=== PATIENT | female | born 1960 | race American Indian/Alaskan Native ===

== ENCOUNTER 2017-06-04 18:57 | Inpatient (IN) | payer MEDICARE ==
[2017-06-04 20:18] LABS: Basophils # (Auto) 0.1 K/mm3 (0.0-0.1); Basophils % (Auto) 0.7 % (0.0-1.8); Eosinophils % (Auto) 0.2 % (0.0-4.3); Hemoglobin 9.8 gm/dl (10.1-14.3); Lymphocytes # (Auto) 0.8 K/mm3 (1.2-5.4); Lymphocytes % (Auto) 9.2 % (13.4-35.0); Mean Corpuscular HGB Conc 33 % (30-34); Mean Corpuscular Hemoglobin 28 pg (28-32); Mean Corpuscular Volume 86 fl (79-97); Monocytes # (Auto) 1.2 K/mm3 (0.0-0.8); Platelet Count 109 K/mm3 (140-440); Red Blood Count 3.48 M/mm3 (3.65-5.03)
[2017-06-04 20:27] LABS: Albumin 3.5 g/dL (3.9-5); Calcium 8.6 mg/dL (8.4-10.2)
[2017-06-04] MEDS ORDERED: ATIVAN ONE (22:42)
[2017-06-05] MEDS ORDERED: PERCOCET 5/325 PO ONE (06:19)
--- NOTE | 2017-06-05 06:39 | Emergency Department Report ---
HPI - General Chief Complaint: Abdominal Pain Time Seen by Provider: 06/05/17 06:12 - HPI HPI: 56-year-old female presents to the emergency department with complaint of right upper quadrant abdominal pain with some nausea that has been going on since 4 PM yesterday. She has a history of end-stage renal disease on hemodialysis and hypertension. She usually gets dialysis on Thursday/Thursday/ Thursday but is set up to get it tomorrow since she is currently visiting from out of town, from [place]. She has a surgical history of a cholecystectomy. She did not take anything for her symptoms prior to presentation. No sick contacts at home. She does not make much urine secondary to her end-stage renal disease. She denies any problems with bowel movements, fever, chest pain or shortness of breath. ED Past Medical Hx - Past Medical History Hx Hypertension: Yes Hx Renal Disease: Yes (HD- MWF) - Surgical History Hx Cholecystectomy: Yes - Social History Smoking Status: Never Smoker Substance Use Type: None - Medications Home Medications: Home Medications Medication Instructions Recorded Confirmed Last Taken Type Hydralazine HCl 50 mg PO TID 06/05/17 06/05/17 06/03/17 History ISOSORBIDE MONOnitrate [Imdur ER] 60 mg PO QAM 06/05/17 06/05/17 06/03/17 History Metoprolol [Lopressor] 25 mg PO BID 06/05/17 06/05/17 06/03/17 History Simvastatin [Zocor TAB] 20 mg PO QHS 06/05/17 06/05/17 06/03/17 History clonazePAM [Klonopin] 0.5 mg PO HS 06/05/17 06/05/17 06/03/17 History ED Review of Systems ROS: Stated complaint: ABD PAIN Other details as noted in HPI Comment: All other systems reviewed and negative Constitutional: denies: chills, fever Eyes: denies: eye pain, eye discharge, vision change ENT: denies: ear pain, throat pain Respiratory: denies: cough, shortness of breath, wheezing Cardiovascular: denies: chest pain, palpitations Gastrointestinal: abdominal pain, nausea Genitourinary: denies: urgency, dysuria, discharge Musculoskeletal: denies: back pain, joint swelling, arthralgia Skin: denies: rash, lesions Neurological: denies: headache, weakness, paresthesias Physical Exam - Physical Exam Vital Signs: Vital Signs 06/04/17 06/05/17 06/05/17 19:30 03:21 06:21 Temperature 98.5 F 97.7 F 98.4 F Pulse Rate 88 100 H 90 Respiratory 18 16 16 Rate Blood Pressure 176/77 111/69 Blood Pressure 125/67 [Right] O2 Sat by Pulse 100 95 100 Oximetry Physical Exam: GENERAL: The patient is well-developed well-nourished. HENT: Normocephalic. Atraumatic. Patient has moist mucous membranes. EYES: Extraocular motions are intact. Pupils equal reactive to light bilaterally. NECK: Supple. Trachea is midline. CHEST/LUNGS: Clear to auscultation. There is no respiratory distress noted. HEART/CARDIOVASCULAR: Regular. There is no tachycardia. There is no murmur. ABDOMEN: Abdomen is soft. There is some tenderness to palpation to the right upper quadrant. No guarding or rebound tenderness. Patient has normal bowel sounds. There is no abdominal distention. SKIN: Skin is warm and dry. NEURO: The patient is awake, alert, and oriented. The patient is cooperative. The patient has no focal neurologic deficits. The patient has normal speech. MUSCULOSKELETAL: There is no tenderness or deformity. There is no limitation range of motion. There is no evidence of acute injury. ED Course Vital Signs 06/04/17 06/05/17 06/05/17 19:30 03:21 06:21 Temperature 98.5 F 97.7 F 98.4 F Pulse Rate 88 100 H 90 Respiratory 18 16 16 Rate Blood Pressure 176/77 111/69 Blood Pressure 125/67 [Right] O2 Sat by Pulse 100 95 100 Oximetry - Consultations Consultation #1: 06/05/17 12:37 I have made multiple times throughout the day in order to get in touch with a urologist. They are not currently control systems eng here but do have privileges and the urology service was control systems eng last night until [address] scan results came back at 7:15 AM. ED Medical Decision Making - Lab Data Result diagrams: 06/05/17 12:01 06/04/17 19:40 - Radiology Data Radiology results: report reviewed EXAM: CT ABDOMEN PELVIS WO CON HISTORY: Abd pain rt side TECHNIQUE: CT images obtained through the Abdomen and Pelvis without contrast. Transaxial,coronal and sagittal reformats are provided. PRIORS: None. FINDINGS: Imaged intrathoracic contents are remarkable for a small right pleural effusion and coronary artery disease. Sequela of old granulomatous disease is noted within the liver and spleen. Prior cholecystectomy. The pancreas and adrenals demonstrate an unremarkable noncontrast appearance. There is marked asymmetric enlargement of the right kidney with extensive surrounding stranding and fluid, which tracks throughout the central mesentery and inferiorly into the pelvis. Enlargement of the right lower renal pole is masslike and measures approximately 9.7 x 8.6 x 10.5 cm. Multiple low-density cystic lesions are present within the right and left kidney. Left kidney is diminutive, consistent with known end-stage renal disease. Hollow enteric organs are normal in caliber. The appendix is not definitively seen. No pneumoperitoneum. Pelvic phleboliths and uterine calcifications are noted. Aorta is mildly tortuous and normal in caliber with scattered atherosclerosis. The inferior vena cava appears mildly expanded at the level of the right renal hilum, although this may be secondary to surrounding stranding and fluid rather than intrinsic enlargement. Superficial soft tissues are remarkable for diffuse mild edema. There is diffuse endplate sclerosis throughout the spine. IMPRESSION: Massive asymmetric enlargement of the right kidney with extensive surrounding fluid and stranding tracking into the pelvis. Multiple cysts are seen throughout both kidneys in this dialysis patient, and masslike enlargement of the right lower renal pole measures up to 10.5 cm. Differential diagnosis includes dialysis related cystic nephropathy with superimposed hemorrhage versus right renal malignancy with extra tumoral hemorrhage. Urology consultation is recommended. If further imaging is needed, contrast enhancement could potentially help discriminate between the above mentioned diagnostic possibilities. Dr. Carlton discussed findings with Dr. Thompson at 0554 central Time on 06/05/2017 immediately following the examination. Transcribed By: WARREN Dictated By: TISHA CARLTON MD Electronically Authenticated By: TISHA CARLTON MD Signed Date/Time: 06/05/17 9498 - Medical Decision Making This patient presents with some right upper quadrant abdominal and flank pain that started yesterday around 4 PM. Labs are mostly unremarkable except for some anemia and the renal insufficiency. However the patient is end-stage renal disease on dialysis. A CT scan of the abdomen and pelvis was done that showed a massive asymmetric enlargement of the right kidney with surrounding fluid that is concerning for blood. The differential is a cystic nephropathy with bleed versus renal malignancy with extra tumoral bleeding. Multiple attempts were made to contact urology from the emergency department by urology is not control systems eng. The patient has been in the emergency department for about 14 hours in total and her vital signs and appearance and appeared stable. The patient has graciously accepted for admission by the hospitalist, Dr. Palomino, who allowed me to add bridging orders and a consult for nephrology. He will most likely consult urology as well. - Differential Diagnosis renal mass, cholelithiasis, nephrolithiasis, malignancy Critical Care Time: No Critical care attestation.: If time is entered above; I have spent that time in minutes in the direct care of this critically ill patient, excluding procedure time. ED Disposition Clinical Impression: Polycystic kidney disease, ESRD on hemodialysis, Renal hemorrhage, right Anemia Qualifiers: Anemia type: unspecified type Qualified Code(s): D64.9 - Anemia, unspecified Disposition: OP ADMIT IP TO THIS HOSP Is pt being admited?: Yes Condition: Stable Time of Disposition: 12:34
--- NOTE | 2017-06-05 07:08 | Cat Scan Report ---
FINAL REPORT EXAM: CT ABDOMEN PELVIS WO CON HISTORY: Abd pain rt side TECHNIQUE: CT images obtained through the Abdomen and Pelvis without contrast. Transaxial,coronal and sagittal reformats are provided. PRIORS: None. FINDINGS: Imaged intrathoracic contents are remarkable for a small right pleural effusion and coronary artery disease. Sequela of old granulomatous disease is noted within the liver and spleen. Prior cholecystectomy. The pancreas and adrenals demonstrate an unremarkable noncontrast appearance. There is marked asymmetric enlargement of the right kidney with extensive surrounding stranding and fluid, which tracks throughout the central mesentery and inferiorly into the pelvis. Enlargement of the right lower renal pole is masslike and measures approximately 9.7 x 8.6 x 10.5 cm. Multiple low-density cystic lesions are present within the right and left kidney. Left kidney is diminutive, consistent with known end-stage renal disease. Hollow enteric organs are normal in caliber. The appendix is not definitively seen. No pneumoperitoneum. Pelvic phleboliths and uterine calcifications are noted. Aorta is mildly tortuous and normal in caliber with scattered atherosclerosis. The inferior vena cava appears mildly expanded at the level of the right renal hilum, although this may be secondary to surrounding stranding and fluid rather than intrinsic enlargement. Superficial soft tissues are remarkable for diffuse mild edema. There is diffuse endplate sclerosis throughout the spine. IMPRESSION: Massive asymmetric enlargement of the right kidney with extensive surrounding fluid and stranding tracking into the pelvis. Multiple cysts are seen throughout both kidneys in this dialysis patient, and masslike enlargement of the right lower renal pole measures up to 10.5 cm. Differential diagnosis includes dialysis related cystic nephropathy with superimposed hemorrhage versus right renal malignancy with extra tumoral hemorrhage. Urology consultation is recommended. If further imaging is needed, contrast enhancement could potentially help discriminate between the above mentioned diagnostic possibilities. Dr. Bliss discussed findings with Dr. Thompson at 0554 central Time on 06/05/2017 immediately following the examination.
[2017-06-05 12:12] LABS: Hematocrit 24.1 % (30.3-42.9)
--- NOTE | 2017-06-05 19:08 | History and Physical Report ---
History of Present Illness Date of examination: 06/05/17 Date of admission: 06/05/17 12:34 Chief complaint: See Dictated H/p in reports Medications and Allergies Allergies Allergy/AdvReac Type Severity Reaction Status Date / Time No Known Allergies Allergy Unverified 06/04/17 19:33 Home Medications Medication Instructions Recorded Confirmed Last Taken Type Hydralazine HCl 50 mg PO TID 06/05/17 06/05/17 06/03/17 History ISOSORBIDE MONOnitrate [Imdur ER] 60 mg PO QAM 06/05/17 06/05/17 06/03/17 History Metoprolol [Lopressor] 25 mg PO BID 06/05/17 06/05/17 06/03/17 History Simvastatin [Zocor TAB] 20 mg PO QHS 06/05/17 06/05/17 06/03/17 History clonazePAM [Klonopin] 0.5 mg PO HS 06/05/17 06/05/17 06/03/17 History Exam - Constitutional Vitals: Temp Pulse Resp BP Pulse Ox 99.3 F 90 19 166/74 84 06/05/17 15:10 06/05/17 15:10 06/05/17 15:10 06/05/17 15:10 06/05/17 15:10 Results - Labs CBC & Chem 7: 06/05/17 12:01 06/04/17 19:40 Labs: Laboratory Last Values WBC 9.2 K/mm3 (4.5-11.0) 06/04/17 19:40 RBC 3.48 M/mm3 (3.65-5.03) L 06/04/17 19:40 Hgb 8.0 gm/dl (10.1-14.3) L 06/05/17 12:01 Hct 24.1 % (30.3-42.9) L 06/05/17 12:01 MCV 86 fl (79-97) 06/04/17 19:40 MCH 28 pg (28-32) 06/04/17 19:40 MCHC 33 % (30-34) 06/04/17 19:40 RDW 15.0 % (13.2-15.2) 06/04/17 19:40 Plt Count 109 K/mm3 (140-440) L 06/04/17 19:40 Lymph % (Auto) 9.2 % (13.4-35.0) L 06/04/17 19:40 [place] % (Auto) 13.0 % (0.0-7.3) H 06/04/17 19:40 Eos % (Auto) 0.2 % (0.0-4.3) 06/04/17 19:40 Baso % (Auto) 0.7 % (0.0-1.8) 06/04/17 19:40 Lymph # 0.8 K/mm3 (1.2-5.4) L 06/04/17 19:40 [place] # 1.2 K/mm3 (0.0-0.8) H 06/04/17 19:40 Eos # 0.0 K/mm3 (0.0-0.4) 06/04/17 19:40 Baso # 0.1 K/mm3 (0.0-0.1) 06/04/17 19:40 Seg Neutrophils % 76.9 % (40.0-70.0) H 06/04/17 19:40 Seg Neutrophils # 7.1 K/mm3 (1.8-7.7) 06/04/17 19:40 Sodium 140 mmol/L (137-145) 06/04/17 19:40 Potassium 4.6 mmol/L (3.6-5.0) 06/04/17 19:40 Chloride 93.8 mmol/L (98-107) L 06/04/17 19:40 Carbon Dioxide 27 mmol/L (22-30) 06/04/17 19:40 Anion Gap 24 mmol/L 06/04/17 19:40 BUN 37 mg/dL (7-17) H 06/04/17 19:40 Creatinine 7.1 mg/dL (0.7-1.2) H 06/04/17 19:40 Estimated GFR 6 ml/min 06/04/17 19:40 BUN/Creatinine Ratio 5 % 06/04/17 19:40 Glucose 167 mg/dL (65-100) H 06/04/17 19:40 Calcium 8.6 mg/dL (8.4-10.2) 06/04/17 19:40 Total Bilirubin 0.50 mg/dL (0.1-1.2) 06/04/17 19:40 AST 30 units/L (5-40) 06/04/17 19:40 ALT 20 units/L (7-56) 06/04/17 19:40 Alkaline Phosphatase 123 units/L (35-129) 06/04/17 19:40 Total Protein 6.4 g/dL (6.3-8.2) 06/04/17 19:40 Albumin 3.5 g/dL (3.9-5) L 06/04/17 19:40 Albumin/Globulin Ratio 1.2 % 06/04/17 19:40
[2017-06-06] MEDS: MORPHINE IV PRN ×2 (00:13→13:29)
--- NOTE | 2017-06-06 08:38 | Consultation ---
History of Present Illness - Reason for Consult Consult date: 06/06/17 end stage renal disease, other (anemia) - History of Present Illness The patient is a 56-year-old female with medical history significant for HTN, HLD and ESRD on hemodialysis (MWF) presents to the emergency department with complaint of right upper quadrant abdominal pain of one day duration. Associated symptoms include some nausea. Pain is fairly constant, sharp and not radiating. She is currently visiting from [place] and not sure where the hemodialysis was arranged. Patient missed hemodialysis yesterday. No sick contacts at home. Decreased PO intake for the past 2 days. She denies any fever, vomiting, diarrhea, dysuria, hematuria, jaundice, dizziness, weakness, chest pain or shortness of breath. Past History Past Medical History: dialysis, ESRD, hypertension, hyperlipidemia Medications and Allergies Allergies Allergy/AdvReac Type Severity Reaction Status Date / Time No Known Allergies Allergy Unverified 06/04/17 19:33 Home Medications Medication Instructions Recorded Confirmed Last Taken Type Hydralazine HCl 50 mg PO TID 06/05/17 06/05/17 06/03/17 History ISOSORBIDE MONOnitrate [Imdur ER] 60 mg PO QAM 06/05/17 06/05/17 06/03/17 History Metoprolol [Lopressor] 25 mg PO BID 06/05/17 06/05/17 06/03/17 History Simvastatin [Zocor TAB] 20 mg PO QHS 06/05/17 06/05/17 06/03/17 History clonazePAM [Klonopin] 0.5 mg PO HS 06/05/17 06/05/17 06/03/17 History Active Meds: Active Medications Morphine Sulfate (Morphine) 1 mg IV Q4H PRN PRN Reason: Pain Last Admin: 06/06/17 00:13 Dose: 1 mg Review of Systems Constitutional: no weight loss, no weight gain, no fever, no chills, no anorexia , no weakness Ears, nose, mouth and throat: no epistaxis Breasts: deferred Cardiovascular: high blood pressure, no chest pain, no orthopnea, no palpitations, no lightheadedness, no shortness of breath, no leg edema Respiratory: no cough, no cough with sputum, no hemoptysis, no shortness of breath, no dyspnea on exertion Gastrointestinal: abdominal pain, nausea, no vomiting, no diarrhea, no hematemesis, no melena Genitourinary Female: no dysuria, no hematuria Rectal: no bleeding Musculoskeletal: no redness of joints Integumentary: no rash, no wounds, no jaundice Neurological: no paralysis, no weakness, no syncope, no aphasia, no confusion Psychiatric: no memory loss Endocrine: no weight change Hematologic/Lymphatic: no easy bleeding Exam - Vital Signs Vital signs: Vital Signs Temp Pulse Resp BP Pulse Ox 98.5 F 88 18 176/77 100 06/04/17 19:30 06/04/17 19:30 06/04/17 19:30 06/04/17 19:30 06/04/17 19:30 - General Appearance General appearance: well-developed, well-nourished, appears stated age, other ( no distress) EENT: ATNC, PERRL, hearing intact, vision intact Neck: Present: neck supple, trachea midline Respiratory: Clear to Ascultation Heart: regular, S1S2, no murmurs Gastrointestinal: Present: normoactive bowel sounds, tenderness (right side). Absent: distended, guarding Integumentary: no rash, warm and dry Neurologic: no focal deficit, no asterixis, alert and oriented x3, CN 3-12 intact Musculoskeletal: Present: other (no edema, left arm AVF) Psychiatric: mood/affect appropriate, cooperative Results - Lab Results 06/07/17 09:38 06/07/17 05:17 Most recent lab results Calcium 8.6 mg/dL (8.4-10.2) 06/04/17 19:40 Assessment and Plan 1. ESRD: Patient missed hemodialysis yesterday. HD today. 2. Anemia: Epogen. Monitor H / H. 3. Hypertension. 4. Abd. pain.
[2017-06-06] MEDS ORDERED: NACL 0.9% 100 ML IV PRN (08:39)
[2017-06-06] MEDS ORDERED: PROCRIT SUB-Q ONE (08:40)
--- NOTE | 2017-06-06 09:49 | History and Physical Report ---
CHIEF COMPLAINT: Right flank pain. HISTORY OF PRESENT ILLNESS: A 56-year-old -English female coming from [place] with a past medical history of end-stage renal disease and hypertension, comes in for right flank pain associated with nausea. It has been going on for the last one day, since yesterday at 4:00 p.m. Pain is about 8 on a scale of 10. Dull to sharp sometimes. Intermittent in nature. No dysuria. No fever, no chills. PAST MEDICAL HISTORY: Significant for hypertension, end-stage renal disease. PAST SURGICAL HISTORY: Significant for cholecystectomy. SOCIAL HISTORY: Does not smoke. No alcohol, no recreational drugs. FAMILY HISTORY: Significant for hypertension. CURRENT MEDICATIONS: Hydralazine 50 mg p.o. t.i.d., Imdur 60 mg p.o. daily, Lopressor 25 mg twice a day, simvastatin 20 mg p.o. at bedtime, clonazepam 0.5 mg p.o. at bedtime. REVIEW OF SYSTEMS: Other than right upper quadrant pain, review of systems is essentially negative. A 14-point review of systems done. PHYSICAL EXAMINATION: GENERAL: Middle-aged female lying in bed, cooperative during examination. VITAL SIGNS: Blood pressure 176/77 and repeat was 111/69, temperature is 98.5, pulse is 88, respirations are 18, sats are 100%. HEENT: Unremarkable. Pupils equal and reactive. NECK: Supple, no lymphadenopathy, no thyromegaly. LUNGS: Clear to auscultation and percussion. Good air entry. CARDIOVASCULAR: S1, S2 heard. No gallop, no murmur, no rub. Apical impulse in left fifth intercostal space and midclavicular line. ABDOMEN: Slightly tender in the right flank region, but no guarding, no rigidity. Bowel sounds are normal. Hernial orifices are normal. EXTREMITIES: Good pedal pulses. No pedal edema. IMAGING STUDIES: CT scan of the abdomen shows a renal mass 9 cm x 8 cm x 10 cm. Multiple low density cystic lesions. Final impression on the CAT scan was massive asymmetric enlargement of the right kidney with extensive surrounding fluid and stranding tracking into the pelvis. Multiple cysts are seen throughout both kidneys in this dialysis patient and massive enlargement of the right lower renal pole measuring up to 10.5 cm. The differential diagnosis including malignancy and cystic nephropathy and with tumor hemorrhage. LABS: Significant for hemoglobin of 9.8 and hematocrit of 30.0, BUN and creatinine of 37 and 7.1, chloride is 93.8, albumin is 3.5, glucose is 167. ASSESSMENT AND PLAN: 1. Right kidney mass, probably malignancy versus cystic nephropathy. I am more in favor for right kidney mass, renal cell carcinoma. Urology consult requested by Dr. Graves. 2. End-stage renal disease, on hemodialysis. Continue hemodialysis. Dr. Nails consulted. 3. Hypertension. Continue metoprolol and hydralazine. 4. Coronary artery disease. Continue isosorbide. 5. Hyperlipidemia. Continue simvastatin. 6. Deep venous thrombosis prophylaxis, heparin 5000 q.12h. JOB# [id number] VSMichelle/NTS
--- NOTE | 2017-06-06 11:13 | Progress Note ---
Assessment and Plan Assessment and plan: Right kidney mass. Etiology may be secondary to malignancy. Urology consultation pending. End stage renal disease on hemodialysis. Continue hemodialysis per nephrology. Fever. Etiology may be related to tumor. We will start empiric antibiotics and check blood cultures/lactic acid level. Hypertension. Continue metoprolol and hydralazine. Coronary artery disease. Hyperlipidemia. Continue simvastatin. DVT prophylaxis History Interval history: No new issues overnight. However, patient complains of right upper quadrant pain. No nausea or vomiting. Hospitalist Physical - Constitutional Vitals: Temp Pulse Resp BP Pulse Ox 102.2 F H 97 H 22 143/57 83 L 06/06/17 07:59 06/06/17 07:59 06/06/17 07:59 06/06/17 07:59 06/06/17 07:59 General appearance: Present: no acute distress, well-nourished - EENT Eyes: Present: PERRL, EOM intact ENT: hearing intact, clear oral mucosa, dentition normal - Neck Neck: Present: supple, normal ROM - Respiratory Respiratory effort: normal Respiratory: bilateral: CTA - Cardiovascular Rhythm: regular Heart Sounds: Present: S1 & S2. Absent: gallop, rub - Extremities Extremities: no ischemia, No edema, Full ROM - Abdominal General gastrointestinal: soft, tender, non-distended, normal bowel sounds Localized gastrointestinal: tender: RUQ - Integumentary Integumentary: Present: clear, warm, dry - Neurologic Neurologic: CNII-XII intact, moves all extremities Results - Labs CBC & Chem 7: 06/05/17 12:01 06/04/17 19:40 Labs: Laboratory Last Values WBC 9.2 K/mm3 (4.5-11.0) 06/04/17 19:40 RBC 3.48 M/mm3 (3.65-5.03) L 06/04/17 19:40 Hgb 8.0 gm/dl (10.1-14.3) L 06/05/17 12:01 Hct 24.1 % (30.3-42.9) L 06/05/17 12:01 MCV 86 fl (79-97) 06/04/17 19:40 MCH 28 pg (28-32) 06/04/17 19:40 MCHC 33 % (30-34) 06/04/17 19:40 RDW 15.0 % (13.2-15.2) 06/04/17 19:40 Plt Count 109 K/mm3 (140-440) L 06/04/17 19:40 Lymph % (Auto) 9.2 % (13.4-35.0) L 06/04/17 19:40 [place] % (Auto) 13.0 % (0.0-7.3) H 06/04/17 19:40 Eos % (Auto) 0.2 % (0.0-4.3) 06/04/17 19:40 Baso % (Auto) 0.7 % (0.0-1.8) 06/04/17 19:40 Lymph # 0.8 K/mm3 (1.2-5.4) L 06/04/17 19:40 [place] # 1.2 K/mm3 (0.0-0.8) H 06/04/17 19:40 Eos # 0.0 K/mm3 (0.0-0.4) 06/04/17 19:40 Baso # 0.1 K/mm3 (0.0-0.1) 06/04/17 19:40 Seg Neutrophils % 76.9 % (40.0-70.0) H 06/04/17 19:40 Seg Neutrophils # 7.1 K/mm3 (1.8-7.7) 06/04/17 19:40 Sodium 140 mmol/L (137-145) 06/04/17 19:40 Potassium 4.6 mmol/L (3.6-5.0) 06/04/17 19:40 Chloride 93.8 mmol/L (98-107) L 06/04/17 19:40 Carbon Dioxide 27 mmol/L (22-30) 06/04/17 19:40 Anion Gap 24 mmol/L 06/04/17 19:40 BUN 37 mg/dL (7-17) H 06/04/17 19:40 Creatinine 7.1 mg/dL (0.7-1.2) H 06/04/17 19:40 Estimated GFR 6 ml/min 06/04/17 19:40 BUN/Creatinine Ratio 5 % 06/04/17 19:40 Glucose 167 mg/dL (65-100) H 06/04/17 19:40 POC Glucose 88 (70-105) 06/06/17 09:14 Calcium 8.6 mg/dL (8.4-10.2) 06/04/17 19:40 Total Bilirubin 0.50 mg/dL (0.1-1.2) 06/04/17 19:40 AST 30 units/L (5-40) 06/04/17 19:40 ALT 20 units/L (7-56) 06/04/17 19:40 Alkaline Phosphatase 123 units/L (35-129) 06/04/17 19:40 Total Protein 6.4 g/dL (6.3-8.2) 06/04/17 19:40 Albumin 3.5 g/dL (3.9-5) L 06/04/17 19:40 Albumin/Globulin Ratio 1.2 % 06/04/17 19:40
[2017-06-06] MEDS: LOPRESSOR PO SCH (12:00)
[2017-06-06] MEDS: IMDUR PO SCH (12:00)
[2017-06-06] MEDS ORDERED: LEVAQUIN 750MG/150ML 750 MG/150 ML BAG IV ONE (14:00)
[2017-06-06] MEDS ORDERED: NON-FORMULARY (Hydralazine Hcl [Hydralazine Hcl] 50 MG) PO SCH (14:00)
[2017-06-06] MEDS: TYLENOL PO PRN (14:05)
[2017-06-06] MEDS: APRESOLINE PO SCH (14:07)
[2017-06-06] MEDS ORDERED: NON-FORMULARY (Simvastatin 20 MG) PO SCH (22:00)
[2017-06-07] MEDS: LOPRESSOR PO SCH ×2 (00:53→10:36)
[2017-06-07] MEDS: APRESOLINE PO SCH ×3 (00:53→14:35)
[2017-06-07] MEDS: PRAVACHOL PO SCH (01:05)
[2017-06-07] MEDS: TYLENOL PO PRN ×2 (01:06→17:40)
[2017-06-07 07:14] LABS: Basophils % (Auto) 0.3 % (0.0-1.8); Hematocrit 20.5 % (30.3-42.9); Hemoglobin 6.8 gm/dl (10.1-14.3); Lymphocytes # (Auto) 1.3 K/mm3 (1.2-5.4); Lymphocytes % (Auto) 13.5 % (13.4-35.0); Mean Corpuscular HGB Conc 33 % (30-34); Mean Corpuscular Hemoglobin 28 pg (28-32); Mean Corpuscular Volume 86 fl (79-97); Monocytes # (Auto) 1.3 K/mm3 (0.0-0.8); Monocytes % (Auto) 14.2 % (0.0-7.3); Platelet Count 105 K/mm3 (140-440); Red Blood Count 2.39 M/mm3 (3.65-5.03); Red Cell Distribution Width 15.1 % (13.2-15.2)
[2017-06-07 07:22] LABS: Calcium 8.5 mg/dL (8.4-10.2)
--- NOTE | 2017-06-07 07:59 | Progress Note ---
Assessment and Plan 1. ESRD: Continue hemodialysis three times a week, MWF schedule. Patient last dialyzed yesterday. 2. Anemia: One unit of PRBC today. Epogen. Monitor H / H. 3. Hypertension: BP well controlled. 4. Abd. pain: Suspected right kidney mass with bleeding. Urology consulted. Subjective Date of service: 06/07/17 Interval history: Patient is feeling better. Objective - Vital Signs Vital signs: Vital Signs - 12hr 06/06/17 06/06/17 06/07/17 22:00 23:43 00:53 Temperature 101.9 F H Pulse Rate 94 H 88 Respiratory 18 16 Rate Blood Pressure 121/47 121/47 O2 Sat by Pulse 98 98 Oximetry 06/07/17 04:54 Temperature 99.4 F Pulse Rate 75 Respiratory 20 Rate Blood Pressure 131/59 O2 Sat by Pulse 99 Oximetry - General Appearance General appearance: well-developed, well-nourished, appears stated age, other ( no distress) EENT: ATNC, PERRL, hearing intact, vision intact Neck: supple Respiratory: Present: Clear to Ascultation Cardiology: regular, S1S2, no murmurs Gastrointestinal: normoactive bowel sounds, no tenderness, no distended Integumentary: no rash, warm and dry Neurologic: no focal deficit, no asterixis, alert and oriented x3 Musculoskeletal: other (no edema, left arm AVF) Psychiatric: mood/affect appropriate, cooperative - Lab 06/07/17 09:38 06/07/17 05:17 Most recent lab results Calcium 8.5 mg/dL (8.4-10.2) 06/07/17 05:17
--- NOTE | 2017-06-07 09:31 | Progress Note ---
Assessment and Plan Assessment and plan: Right kidney mass. Etiology may be secondary to malignancy. Urology consultation pending. End stage renal disease on hemodialysis. Continue hemodialysis per nephrology. Fever. Etiology may be related to tumor. Cont empiric abx and f/u cultures Hypertension. Continue metoprolol and hydralazine. Coronary artery disease. Hyperlipidemia. Continue simvastatin. Anemia of ESRD. Transfuse 1 unit of PRBCs. DVT prophylaxis History Interval history: No new issues overnight. However, patient complains of right upper quadrant pain. No nausea or vomiting. Hospitalist Physical - Constitutional Vitals: Temp Pulse Resp BP Pulse Ox 99.3 F 79 18 141/53 97 06/07/17 08:38 06/07/17 08:38 06/07/17 08:38 06/07/17 08:38 06/07/17 08:38 General appearance: Present: no acute distress, well-nourished - EENT Eyes: Present: PERRL, EOM intact ENT: hearing intact, clear oral mucosa, dentition normal - Neck Neck: Present: supple, normal ROM - Respiratory Respiratory effort: normal Respiratory: bilateral: CTA - Cardiovascular Rhythm: regular Heart Sounds: Present: S1 & S2. Absent: gallop, rub - Extremities Extremities: no ischemia, No edema, Full ROM - Abdominal General gastrointestinal: soft, non-tender, non-distended, normal bowel sounds - Integumentary Integumentary: Present: clear, warm, dry - Neurologic Neurologic: CNII-XII intact, moves all extremities Results - Labs CBC & Chem 7: 06/07/17 05:17 06/07/17 05:17 Labs: Laboratory Last Values WBC 9.4 K/mm3 (4.5-11.0) 06/07/17 05:17 RBC 2.39 M/mm3 (3.65-5.03) L 06/07/17 05:17 Hgb 6.8 gm/dl (10.1-14.3) L 06/07/17 05:17 Hct 20.5 % (30.3-42.9) L 06/07/17 05:17 MCV 86 fl (79-97) 06/07/17 05:17 MCH 28 pg (28-32) 06/07/17 05:17 MCHC 33 % (30-34) 06/07/17 05:17 RDW 15.1 % (13.2-15.2) 06/07/17 05:17 Plt Count 105 K/mm3 (140-440) L 06/07/17 05:17 Lymph % (Auto) 13.5 % (13.4-35.0) 06/07/17 05:17 [place] % (Auto) 14.2 % (0.0-7.3) H 06/07/17 05:17 Eos % (Auto) 0.0 % (0.0-4.3) 06/07/17 05:17 Baso % (Auto) 0.3 % (0.0-1.8) 06/07/17 05:17 Lymph # 1.3 K/mm3 (1.2-5.4) 06/07/17 05:17 [place] # 1.3 K/mm3 (0.0-0.8) H 06/07/17 05:17 Eos # 0.0 K/mm3 (0.0-0.4) 06/07/17 05:17 Baso # 0.0 K/mm3 (0.0-0.1) 06/07/17 05:17 Seg Neutrophils % 72.0 % (40.0-70.0) H 06/07/17 05:17 Seg Neutrophils # 6.8 K/mm3 (1.8-7.7) 06/07/17 05:17 Sodium 144 mmol/L (137-145) 06/07/17 05:17 Potassium 4.5 mmol/L (3.6-5.0) 06/07/17 05:17 Chloride 97.5 mmol/L (98-107) L 06/07/17 05:17 Carbon Dioxide 29 mmol/L (22-30) 06/07/17 05:17 Anion Gap 22 mmol/L 06/07/17 05:17 BUN 34 mg/dL (7-17) H 06/07/17 05:17 Creatinine 7.6 mg/dL (0.7-1.2) H 06/07/17 05:17 Estimated GFR 7 ml/min 06/07/17 05:17 BUN/Creatinine Ratio 4 % 06/07/17 05:17 Glucose 83 mg/dL (65-100) 06/07/17 05:17 POC Glucose 94 (70-105) 06/07/17 06:21 Lactic Acid 1.00 mmol/L (0.7-2.0) 06/06/17 12:12 Calcium 8.5 mg/dL (8.4-10.2) 06/07/17 05:17 Total Bilirubin 0.50 mg/dL (0.1-1.2) 06/04/17 19:40 AST 30 units/L (5-40) 06/04/17 19:40 ALT 20 units/L (7-56) 06/04/17 19:40 Alkaline Phosphatase 123 units/L (35-129) 06/04/17 19:40 Total Protein 6.4 g/dL (6.3-8.2) 06/04/17 19:40 Albumin 3.5 g/dL (3.9-5) L 06/04/17 19:40 Albumin/Globulin Ratio 1.2 % 06/04/17 19:40
[2017-06-07 09:55] LABS: Hemoglobin 6.4 gm/dl (10.1-14.3)
[2017-06-07] MEDS ORDERED: NACL 0.9% 500 ML 500 ML IV ONE (10:00)
[2017-06-07 10:15] LABS: Hematocrit 19.4 % (30.3-42.9)
[2017-06-07] MEDS: IMDUR PO SCH (10:35)
--- NOTE | 2017-06-07 17:42 | Consultation ---
History of Present Illness - Reason for Consult Consult date: 06/07/17 renal mass / cysts - History of Present Illness History of present illness: patient is an -[place] female 56 years old who is from [place]. She has a history of end-stage renal disease on dialysis. One day right flank pain associated nausea. Pain described as aching located in the right upper quadrant with some radiation to the flank. Pain is rated as a 8/ 10 on admission. And pain was constant. Pain is currently improved. Now her pain is significantly decreased. No significant lower urinary tract symptoms and does not make urine. She states she might be followed by a urologist. And has had imaging in [place] done. is currently improved Past History Past Medical History: ESRD, hypertension Past Surgical History: cholecystectomy Social history: denies: smoking, alcohol abuse, prescription drug abuse, IV drug use Family history: hypertension Medications and Allergies Allergies Allergy/AdvReac Type Severity Reaction Status Date / Time No Known Allergies Allergy Unverified 06/04/17 19:33 Home Medications Medication Instructions Recorded Confirmed Last Taken Type Hydralazine HCl 50 mg PO TID 06/05/17 06/05/17 06/03/17 History ISOSORBIDE MONOnitrate [Imdur ER] 60 mg PO QAM 06/05/17 06/05/17 06/03/17 History Metoprolol [Lopressor] 25 mg PO BID 06/05/17 06/05/17 06/03/17 History Simvastatin [Zocor TAB] 20 mg PO QHS 06/05/17 06/05/17 06/03/17 History clonazePAM [Klonopin] 0.5 mg PO HS 06/05/17 06/05/17 06/03/17 History Active Meds: Active Medications Acetaminophen (Tylenol) 650 mg PO Q6H PRN PRN Reason: Headache Last Admin: 06/07/17 01:06 Dose: 650 mg Clonazepam (Klonopin) 0.5 mg PO HS JONAH Last Admin: 06/07/17 01:05 Dose: 0.5 mg Hydralazine HCl (Apresoline) 50 mg PO TID JONAH Last Admin: 06/07/17 14:35 Dose: 50 mg Sodium Chloride (Nacl 0.9%) 100 mls @ 999 mls/hr IV HENRY PRN PRN Reason: Hypotension Levofloxacin/Dextrose (Levaquin 500mg/100ml) 500 mg in 100 mls @ 100 mls/hr IV Q48H [facility] Isosorbide Mononitrate (Imdur) 60 mg PO QAM [facility] Last Admin: 06/07/17 10:35 Dose: 60 mg Metoprolol Tartrate (Lopressor) 25 mg PO BID [facility] Last Admin: 06/07/17 10:36 Dose: 25 mg Morphine Sulfate (Morphine) 1 mg IV Q4H PRN PRN Reason: Pain Last Admin: 06/06/17 13:29 Dose: 1 mg Pravastatin Sodium (Pravachol) 40 mg PO QHS [facility] Last Admin: 06/07/17 01:05 Dose: 40 mg Review of Systems All systems: negative Genitourinary Female: other ( right upper quadrant and flank pain; review of systems as in HPI) Exam - Constitutional Vitals: Temp Pulse Resp BP Pulse Ox 102.1 F H 81 18 128/58 98 06/07/17 16:26 06/07/17 16:26 06/07/17 16:26 06/07/17 16:26 06/07/17 16:26 General appearance: Present: no acute distress - EENT Eyes: Present: EOM intact ENT: hearing intact, clear oral mucosa - Neck Neck: Present: supple, normal ROM - Respiratory Respiratory effort: normal - Extremities Extremities: no ischemia, No edema - Abdominal General gastrointestinal: Present: soft, non-tender, non-distended Female genitourinary: Present: deferred - Rectal Rectal Exam: deferred - Integumentary Integumentary: Present: clear, warm, dry - Psychiatric Psychiatric: appropriate mood/affect, intact judgment & insight, memory intact - Neurologic Neurologic: moves all extremities Results - Labs CBC & Chem 7: 06/09/17 06:28 06/07/17 05:17 Labs: Abnormal lab results 06/07/17 06/07/17 06/07/17 Range/Units 05:17 05:17 09:38 RBC 2.39 L (3.65-5.03) M/mm3 Hgb 6.8 L 6.4 L (10.1-14.3) gm/dl Hct 20.5 L 19.4 L* (30.3-42.9) % Plt Count 105 L (140-440) K/mm3 [place] % (Auto) 14.2 H (0.0-7.3) % [place] # 1.3 H (0.0-0.8) K/mm3 Seg Neutrophils % 72.0 H (40.0-70.0) % Chloride 97.5 L (98-107) mmol/L BUN 34 H (7-17) mg/dL Creatinine 7.6 H (0.7-1.2) mg/dL POC Glucose (70-105) Crossmatch 06/07/17 06/07/17 Range/Units 09:40 16:30 RBC (3.65-5.03) M/mm3 Hgb (10.1-14.3) gm/dl Hct (30.3-42.9) % Plt Count (140-440) K/mm3 [place] % (Auto) (0.0-7.3) % [place] # (0.0-0.8) K/mm3 Seg Neutrophils % (40.0-70.0) % Chloride (98-107) mmol/L BUN (7-17) mg/dL Creatinine (0.7-1.2) mg/dL POC Glucose 109 H (70-105) Crossmatch See Detail Assessment and Plan RENAL MASS ESRD - Disc cancer, renal bleed, cyst rupture - decl tx or nephrectomy here wants eval in [place] - monitor labs, h/h, dialysis
[2017-06-08] MEDS: LOPRESSOR PO SCH ×3 (01:25→22:04)
[2017-06-08] MEDS: APRESOLINE PO SCH ×4 (01:26→20:38)
[2017-06-08] MEDS: PRAVACHOL PO SCH ×2 (01:27→22:03)
[2017-06-08] MEDS: TYLENOL PO PRN (01:27)
[2017-06-08] MEDS ORDERED: NACL 0.9% 500 ML 500 ML IV ONE (01:42)
[2017-06-08 08:28] LABS: Hematocrit 23.5 % (30.3-42.9); Hemoglobin 7.7 gm/dl (10.1-14.3); Mean Corpuscular HGB Conc 33 % (30-34); Mean Corpuscular Hemoglobin 28 pg (28-32); Mean Corpuscular Volume 85 fl (79-97); Platelet Count 135 K/mm3 (140-440); Red Blood Count 2.77 M/mm3 (3.65-5.03); Red Cell Distribution Width 14.7 % (13.2-15.2)
[2017-06-08 08:40] LABS: INR 1.21 (0.87-1.13)
[2017-06-08 08:41] LABS: Partial Thromboplastin Time 42.6 Sec. (24.2-36.6)
[2017-06-08] MEDS: IMDUR PO SCH (11:52)
[2017-06-08] MEDS ORDERED: NACL 0.9% 100 ML IV PRN (12:00)
--- NOTE | 2017-06-08 12:01 | Progress Note ---
<GOMEZJEWELESTELA T - Last Filed: 06/09/17 08:48> Assessment and Plan RENAL CYSTIC MASS - disc possiblility of canncer, cyst rupture, bleed - disc nephrectomy, declined here, wants eval when she get back to [place] by Uroligist ther Objective - Vital Signs Vital signs: Vital Signs - 12hr 06/08/17 06/09/17 22:04 07:44 Temperature 98.4 F Pulse Rate 92 H 71 Respiratory 16 Rate Blood Pressure 129/63 126/63 O2 Sat by Pulse 94 Oximetry - Lab 06/09/17 06:28 06/07/17 05:17 Most recent lab results Calcium 8.5 mg/dL (8.4-10.2) 06/07/17 05:17 <GARTH SAMUEL - Last Filed: 06/09/17 14:44> Assessment and Plan 1. ESRD: Continue hemodialysis three times a week, MWF schedule. 2. Anemia: s/p one unit of PRBC. Epogen. Monitor H / H. 3. Hypertension: BP well controlled. 4. Abd. pain: Suspected right kidney mass with bleeding. Seen by Urologist. Subjective Date of service: 06/08/17 Interval history: Patient is feeling better. Objective - Vital Signs Vital signs: Vital Signs - 12hr 06/08/17 06/08/17 06/08/17 01:19 01:25 01:26 Temperature 99.8 F H Pulse Rate 81 80 80 Respiratory 20 Rate Blood Pressure 125/56 125/56 Blood Pressure 125/56 [Right] O2 Sat by Pulse 97 Oximetry 06/08/17 06/08/17 06/08/17 03:20 03:35 04:05 Temperature 99.6 F 99.0 F 99.1 F Pulse Rate 99 H 67 73 Respiratory 18 20 20 Rate Blood Pressure 118/54 110/50 105/53 Blood Pressure [Right] O2 Sat by Pulse 99 98 98 Oximetry 06/08/17 06/08/17 06/08/17 04:35 05:05 05:35 Temperature 98.8 F 98.8 F 98.9 F Pulse Rate 67 66 66 Respiratory 20 20 20 Rate Blood Pressure 1023/48 106/46 100/37 Blood Pressure [Right] O2 Sat by Pulse 97 96 97 Oximetry 06/08/17 06/08/17 06:05 08:01 Temperature 98.8 F 98.0 F Pulse Rate 60 71 Respiratory 20 20 Rate Blood Pressure 109/47 120/54 Blood Pressure [Right] O2 Sat by Pulse 100 99 Oximetry - General Appearance General appearance: well-developed, well-nourished, appears stated age, other ( no distress) EENT: ATNC, PERRL, mucous membranes moist, hearing intact, vision intact Neck: supple Respiratory: Present: Clear to Ascultation Cardiology: regular, S1S2, no murmurs Gastrointestinal: normoactive bowel sounds, no tenderness, no distended Integumentary: no rash, warm and dry Neurologic: no focal deficit, no asterixis, alert and oriented x3 Musculoskeletal: other (no edema, left arm AVF) Psychiatric: mood/affect appropriate, cooperative - Lab 06/09/17 06:28 06/07/17 05:17 Most recent lab results Calcium 8.5 mg/dL (8.4-10.2) 06/07/17 05:17
[2017-06-08] MEDS: FEOSOL PO SCH ×2 (13:29→22:03)
[2017-06-08] MEDS ORDERED: LEVAQUIN 500MG/100ML 500 MG/100 ML BAG IV SCH (14:00)
--- NOTE | 2017-06-08 19:06 | Progress Note ---
Assessment and Plan Assessment and plan: Right kidney mass. Etiology may be secondary to malignancy. Patient evaluated by Urology. Await further recommendation by Urology. End stage renal disease on hemodialysis. Continue hemodialysis per nephrology. Fever. Etiology may be related to tumor vs infection. Cont empiric abx and f/ u cultures. Blood cultures neg Hypertension. Continue metoprolol and hydralazine. Coronary artery disease. Hyperlipidemia. Continue simvastatin. Anemia of ESRD. Transfused 1 unit of PRBC. Hgb 7.7 today DVT prophylaxis with SCds only because of anemia History Interval history: Fever Right flank pain Hospitalist Physical - Physical exam Narrative exam: GEN APPEARANCE : Not in acute distress, lying in bed,obese HEENT: Normocephalic, Atraumatic NECK : supple, no JVD LUNGS: Clear to auscultation bilaterally, no rales, no wheeze HEART: S1 and S2 regular, no murmurs, rubs or gallop ABD: Soft, non tender, non distended, normal bowel sounds EXT: No edema, no clubbing, no cyanosis, no cyanosis NEURO: Awake,alert, oriented x 3, no focal signs - Constitutional Vitals: Temp Pulse Resp BP Pulse Ox 98.8 F 75 18 150/46 99 06/08/17 17:20 06/08/17 17:20 06/08/17 17:20 06/08/17 17:20 06/08/17 08:01 General appearance: Present: no acute distress Results - Labs CBC & Chem 7: 06/09/17 06:28 06/07/17 05:17 Labs: Laboratory Last Values WBC 11.0 K/mm3 (4.5-11.0) 06/08/17 08:16 RBC 2.77 M/mm3 (3.65-5.03) L 06/08/17 08:16 Hgb 7.7 gm/dl (10.1-14.3) L 06/08/17 08:16 Hct 23.5 % (30.3-42.9) L 06/08/17 08:16 MCV 85 fl (79-97) 06/08/17 08:16 MCH 28 pg (28-32) 06/08/17 08:16 MCHC 33 % (30-34) 06/08/17 08:16 RDW 14.7 % (13.2-15.2) 06/08/17 08:16 Plt Count 135 K/mm3 (140-440) L 06/08/17 08:16 Lymph % (Auto) 13.5 % (13.4-35.0) 06/07/17 05:17 [place] % (Auto) 14.2 % (0.0-7.3) H 06/07/17 05:17 Eos % (Auto) 0.0 % (0.0-4.3) 06/07/17 05:17 Baso % (Auto) 0.3 % (0.0-1.8) 06/07/17 05:17 Lymph # 1.3 K/mm3 (1.2-5.4) 06/07/17 05:17 [place] # 1.3 K/mm3 (0.0-0.8) H 06/07/17 05:17 Eos # 0.0 K/mm3 (0.0-0.4) 06/07/17 05:17 Baso # 0.0 K/mm3 (0.0-0.1) 06/07/17 05:17 Seg Neutrophils % 72.0 % (40.0-70.0) H 06/07/17 05:17 Seg Neutrophils # 6.8 K/mm3 (1.8-7.7) 06/07/17 05:17 PT 16.0 Sec. (12.2-14.9) H 06/08/17 08:16 INR 1.21 (0.87-1.13) H 06/08/17 08:16 APTT 42.6 Sec. (24.2-36.6) H 06/08/17 08:16 Sodium 144 mmol/L (137-145) 06/07/17 05:17 Potassium 4.5 mmol/L (3.6-5.0) 06/07/17 05:17 Chloride 97.5 mmol/L (98-107) L 06/07/17 05:17 Carbon Dioxide 29 mmol/L (22-30) 06/07/17 05:17 Anion Gap 22 mmol/L 06/07/17 05:17 BUN 34 mg/dL (7-17) H 06/07/17 05:17 Creatinine 7.6 mg/dL (0.7-1.2) H 06/07/17 05:17 Estimated GFR 7 ml/min 06/07/17 05:17 BUN/Creatinine Ratio 4 % 06/07/17 05:17 Glucose 83 mg/dL (65-100) 06/07/17 05:17 POC Glucose 121 (70-105) H 06/08/17 18:40 Lactic Acid 1.00 mmol/L (0.7-2.0) 06/06/17 12:12 Calcium 8.5 mg/dL (8.4-10.2) 06/07/17 05:17 Total Bilirubin 0.50 mg/dL (0.1-1.2) 06/04/17 19:40 AST 30 units/L (5-40) 06/04/17 19:40 ALT 20 units/L (7-56) 06/04/17 19:40 Alkaline Phosphatase 123 units/L (35-129) 06/04/17 19:40 Total Protein 6.4 g/dL (6.3-8.2) 06/04/17 19:40 Albumin 3.5 g/dL (3.9-5) L 06/04/17 19:40 Albumin/Globulin Ratio 1.2 % 06/04/17 19:40 Blood Type O POSITIVE 06/07/17 09:40 Antibody Screen Negative 06/07/17 09:40 Crossmatch See Detail 06/07/17 09:40
--- NOTE | 2017-06-09 07:38 | Discharge Summary ---
Providers - Providers Date of Admission: 06/05/17 12:34 Date of discharge: 06/09/17 Attending physician: TISHA KEITH 06/05/17 12:35 Consult to Physician [CONS] Routine Consulting Provider: GARTH SAMUEL Reason For Exam: Dialysis Place consult to:: dr. samuel Notified:: md seen patient Phone number called:: Was contact made?: No Time called:: 10:54 06/05/17 16:21 Consult to Physician [CONS] Routine Consulting Provider: BENITO NEGRON Reason For Exam: Urinary retention Place consult to:: dr. negron Notified:: dr varun polo Comment:: md spoke with Consult to Physician [CONS] Routine Consulting Provider: ESTELA SAHU Reason For Exam: Rt Renal mass Place consult to:: dr. sahu Notified:: . Comment:: dr. varun polo consult nurse aware Primary care physician: TISHA SALOMON Hospitalization Condition: Fair Disposition: - TO HOME OR SELFCARE - Discharge Diagnoses (1) Right kidney mass Status: Acute (2) ESRD on hemodialysis Status: Acute Core Measure Documentation - Palliative Care Palliative Care/ Comfort Measures: Not Applicable - Core Measures Any of the following diagnoses?: none Exam - Constitutional Vitals: Temp Pulse Resp BP Pulse Ox 99.7 F H 92 H 20 129/63 92 06/08/17 20:08 06/08/17 22:04 06/08/17 20:08 06/08/17 22:04 06/08/17 20:08 Plan Activity: advance as tolerated Diet: low fat, low cholesterol, low salt, renal Additional Instructions: 1.Follow up with PCP at [place] in 3-5 days. 2.Follow up [facility] at [place] in 1-2 days. 3.Follow up with Urologist at [place] in 2-3 days to evaluate right kidney mass. 4.Routine hemodialysis as scheduled Follow up with: TISHA SALOMON MD [Primary Care Provider] - 3-5 Days Prescriptions: Docusate Sodium [Colace] 100 mg PO BID #60 capsule Ferrous Sulfate [Feosol 325 MG tab] 325 mg PO BID #60 tablet
[2017-06-09 07:49] LABS: Hematocrit 22.7 % (30.3-42.9); Hemoglobin 7.5 gm/dl (10.1-14.3); Mean Corpuscular HGB Conc 33 % (30-34); Mean Corpuscular Hemoglobin 28 pg (28-32); Mean Corpuscular Volume 85 fl (79-97); Platelet Count 141 K/mm3 (140-440); Red Blood Count 2.68 M/mm3 (3.65-5.03); Red Cell Distribution Width 14.6 % (13.2-15.2)
--- NOTE | 2017-06-09 08:34 | Progress Note ---
Assessment and Plan 1. ESRD: Continue hemodialysis three times a week, MWF schedule. 2. Anemia: S/p one unit of PRBC. Epogen on dialysis days. Monitor H / H. 3. Hypertension: BP well controlled. 4. Abd. pain: Suspected right kidney mass with bleeding. Seen by Urologist. Subjective Date of service: 06/09/17 Interval history: Patient is feeling better. Objective - Vital Signs Vital signs: Vital Signs - 12hr 06/08/17 06/08/17 20:38 22:04 Pulse Rate 92 H 92 H Blood Pressure 129/63 129/63 - General Appearance General appearance: well-developed, well-nourished, appears stated age, other ( no distress) EENT: ATNC, PERRL, mucous membranes moist, hearing intact, vision intact Neck: supple Respiratory: Present: Clear to Ascultation Cardiology: regular, S1S2, no murmurs Gastrointestinal: normoactive bowel sounds, no tenderness, no distended Integumentary: no rash, warm and dry Neurologic: no focal deficit, no asterixis, alert and oriented x3 Musculoskeletal: other (no edema, left arm AVF) Psychiatric: mood/affect appropriate, cooperative - Lab 06/09/17 06:28 06/07/17 05:17 Most recent lab results Calcium 8.5 mg/dL (8.4-10.2) 06/07/17 05:17
[2017-06-09 08:41] VITALS: BP 126/63
[2017-06-09] MEDS: APRESOLINE PO SCH (09:05)
[2017-06-09] MEDS: FEOSOL PO SCH (09:05)
[2017-06-09] MEDS: LOPRESSOR PO SCH (09:05)
[2017-06-09] MEDS: IMDUR PO SCH (09:05)
== END 2017-06-09 11:52 | disposition home or self-care (01) | DRG 699 ==
LOC: ED 18:57 → 3A 06-05 12:34
PROVIDERS: ADMIT Internal Medicine; ATTEND Internal Medicine
PROC: 5A1D70Z Performance of Urinary Filtration, Intermittent, Less than 6 Hours Per Day (ICD-10-PCS; 2017-06-06)
PROC: 30233N1 Transfusion of Nonautologous Red Blood Cells into Peripheral Vein, Percutaneous Approach (ICD-10-PCS; principal; 2017-06-08)
PROC: 5A1D70Z Performance of Urinary Filtration, Intermittent, Less than 6 Hours Per Day (ICD-10-PCS; 2017-06-08)
DX: N28.89 Other specified disorders of kidney and ureter (principal); I12.0 Hypertensive chronic kidney disease with stage 5 chronic kidney disease or end stage renal disease; Q61.3 Polycystic kidney, unspecified; N18.6 End stage renal disease; D63.1 Anemia in chronic kidney disease; E78.5 Hyperlipidemia, unspecified; I25.10 Atherosclerotic heart disease of native coronary artery without angina pectoris; Z90.49 Acquired absence of other specified parts of digestive tract; Z79.899 Other long term (current) drug therapy; Z82.49 Family history of ischemic heart disease and other diseases of the circulatory system
CPT/HCPCS: 36415; 74176; 80048; 80053; 82140; 82962; 85014; 85018; 85025; 85027; 85610; 85730; 86850; 86900; 86901; 86920; 87040; 96374; A9270-GY; J0885; J1956; J2060; J2270; J7040; P9016